=== PATIENT | female | born 1985 | race Caucasian/White ===

== ENCOUNTER 2018-11-12 14:29 | Inpatient (IN) | payer OTHER ==
[2018-11-12] MEDS ORDERED: LR 1,000 ML IV PRN (14:40)
[2018-11-12] MEDS ORDERED: EPSOM SALT 454 GM TP PRN (14:40)
[2018-11-12] MEDS ORDERED: OLIVE OIL 118 ML BTL MISC PRN (14:40)
[2018-11-12] MEDS ORDERED: IBUPROFEN 600 MG TAB PO PRN (14:40)
[2018-11-12] MEDS ORDERED: LIDOCAINE 1% 300 MG/30 ML SDV SC PRN (14:40)
[2018-11-12] MEDS ORDERED: MISOPROSTOL 200 MCG TAB PR PRN (14:40)
[2018-11-12] MEDS ORDERED: OXYTOCIN/RINGERS LACTATE 1,000 ML IV PRN (14:40)
[2018-11-12] MEDS ORDERED: PENICILLIN G POTASSIUM 5,000,000 UNIT in D5W 150 ML IV ONE (14:40)
[2018-11-12] MEDS ORDERED: OLIVE OIL 118 ML BTL ONE (14:41)
[2018-11-12] MEDS ORDERED: LIDOCAINE 1% 300 MG/30 ML SDV ONE (14:41)
[2018-11-12] MEDS ORDERED: AMMONIA AROMATIC 1 EACH AMP IH ONE (14:42)
[2018-11-12] MEDS ORDERED: MISOPROSTOL 200 MCG TAB ONE (14:42)
[2018-11-12] MEDS ORDERED: OXYTOCIN 10 UNIT/ML VIAL ONE (14:42)
[2018-11-12] MEDS ORDERED: TERBUTALINE SULFATE 1 MG/ML VIAL ONE (14:42)
[2018-11-12 15:34] LABS: PLATELET COUNT 154 10^3/uL (150-400)
--- NOTE | 2018-11-12 17:06 | PDGENHP ---
History and Physical History and Physical: Care: [facility] HPI: Massiel Hayes is a [id number] with IUP@ 40-3 weeks that presents to L&D with complaints of contractions since 1200. She denies any LOF, VB. Reports +FM. EDC: 11/09/18 which is based on LMP and c/w Ultrasound at 9weeks. Her is complicated by: h/o PP depression (on meds), mild anemia, +GBS Review of Systems: Constitutional: Denies any fever, chills, or fatigue HEENT: denies any visual changes, difficulty swallowing, hearing loss Cardiovascular: Denies any chest pain, palpitations, leg swelling Respiratory: denies any cough, wheezing, or shortness of breathe GI: Denies any nausea, vomiting, diarrhea, constipation : denies any dysuria, urgency, frequency, vaginal bleeding Musculoskeletal: denies any muscle or bone pain Skin: denies any rashes Neuro: denies any headache, seizures, lightheadedness, dizziness, or loss of consciousness Psychiatric: denies any depression, anxiety, or SI/HI thoughts HISTORY: Previous OB history: 7#4 (Esteban) Past medical history: depression Past surgical history: denies any Social: Denies any alcohol, tobacco, or drug use. - Harjinder, son Esteban; she is a SAHM Family history: Not relevant Medications: PNV, zoloft Allergies (list reaction): NKDA LABS: Rh: AB+ ABS: Neg Rubella: Immune HbsAg: NR HIV: NR VDRL: NR 1hr: 117 GC: Neg Chlamydia: Neg Pap: Normal GBS: + PHYSICAL EXAM: Constitutional: WN, A&Ox3 HEENT: normocephalic atraumatic, supple Skin: Warm, dry, intact Heart: RRR, no murmur Chest: CTA-B Abdomen: Soft, nontender, gravid SVE: 5/50/-2 Extremities: trace edema, negative homans sign Neuro: grossly normal Psych: normal affect assessment: FHT baseline 130+accels, no decels, moderate variability Contractions: toco q 2-5 Assessment: * 33yo with IUP@ 40-3wks * ACtive labor * GBS+ * cat 1 FHR Tracing Plan: * Admit to L&D * IV abx * expectant management PRN * pain relief PRN per pt request * IA per protocol * consider AROM after 2nd dose of PCN Today's visit was approximately 45 min, of which >50% of visit 30 min, was spent face to face with pt on direct counseling/coordination of care.
[2018-11-12] MEDS: PENICILLIN G POTASSIUM 2,500,000 UNIT in D5W 150 ML IV SCH ×2 (19:04→23:51)
[2018-11-12] MEDS ORDERED: SIMETHICONE 80 MG TAB CHEW PO PRN (22:09)
[2018-11-12] MEDS ORDERED: ACETAMINOPHEN 325 MG TAB PO PRN (22:09)
[2018-11-12] MEDS ORDERED: HYDROCORTISONE 0.5% CREAM TP PRN (22:09)
--- NOTE | 2018-11-12 22:09 | OBDEL ---
Info Type: Vaginal Presentation at Delivery: Vertex L&D Analgesia/Anesthesia Type: None GBS+: Yes Intrapartum Medications: Generic Name Dose Route Start Last Admin Trade Name Freq PRN Reason Stop Dose Admin Penicillin G Potassium 2,500, 155 mls @ 155 mls/hr 11/12/18 18:44 11/12/18 19 :04 000 unit/ Dextrose IV 12/12/18 18:43 155 mls Q4H GREY Administration Protocol Discontinued Medications Generic Name Dose Route Start Last Admin Trade Name Freq PRN Reason Stop Dose Admin Penicillin G Potassium 5,000, 160 mls @ 160 mls/hr 11/12/18 14:40 11/12/18 15 :10 000 unit/ Dextrose IV 11/12/18 15:39 160 mls ONCE ONE Administration Protocol Ibuprofen 600 mg 11/12/18 14:40 11/12/18 22:03 Motrin PO 600 mg ONCE PRN Administration post , pain Indications for Delivery: Spontaneous Labor Vaginal Delivery - Delivery Provider Delivery Physician/CNM: Trinidad Nolen - Labor and Delivery Onset of Contractions Date: 11/12/18 Onset of Contractions Time: 12:00 Onset of Contractions Type: Spontaneous Rupture of Membranes Date: 11/12/18 Rupture of Membranes Time: 20:22 Rupture of Membranes Type: Artificial Amniotic Fluid Color: Meconium Stained Dilation Complete Date: 11/12/18 Dilation Complete Time: 21:08 Placenta Delivery Date: 11/12/18 Placenta Delivery Time: 21:49 Total Hours of Labor: 9 Non-surgical Procedures: Amniotomy Vaginal Sponge Count Correct: Yes Vaginal Needle Count Correct: Yes Vaginal Sweep Performed: Yes EBL: 250 Delivery Events: Nuchal Cord [place] Data HAMZAH: 11/09/18 Gestational Age: 40 week(s) and 3 day(s) Mason Delivery Date: 11/12/18 Delivery Time: 21:35 Sex of Infant: Female Score (1 Min): 8 Score (5 Min): 9 ICD10 Worksheet Patient Problems: Problems Problem Status Onset Nuchal cord, single gestation Acute (spontaneous vaginal delivery) Acute - ICD10 Problem Qualifiers (1) (spontaneous vaginal delivery) (2) Nuchal cord, single gestation
[2018-11-13] MEDS: IBUPROFEN 600 MG TAB PO PRN ×3 (03:58→16:47)
[2018-11-13] MEDS: PENICILLIN G POTASSIUM 2,500,000 UNIT in D5W 150 ML IV SCH ×2 (06:28→11:46)
--- NOTE | 2018-11-13 08:52 | OBPP ---
Progress Note Assessment/Plan: Assessment: PP day 1 Plan: D/C home tomorrow 11/13/18 08:49 Subjective/ Course: 11/13/18 08:51 No c/o. Voiding well, pain well controlled. breast feeding well, planning support today. Plan D/C home today. Objective: 11/12/18 15:15 Patient ABO/Rh AB POSITIVE 11/12/18 15:15 Temp Pulse Resp BP Pulse Ox 37.0 C 66 16 95/61 L 94 11/13/18 04:00 11/13/18 04:00 11/13/18 04:00 11/13/18 04:00 11/13/18 04:00 VSS Uterine Position/Fundal Height: At Umbilicus Uterine Tone: Firm
[2018-11-13] MEDS: DOCUSATE SODIUM 100 MG CAP PO PRN (10:43)
[2018-11-14] MEDS: DOCUSATE SODIUM 100 MG CAP PO PRN (00:55)
[2018-11-14] MEDS: IBUPROFEN 600 MG TAB PO PRN ×2 (00:55→10:29)
[2018-11-14 09:15] VITALS: BP 110/67
--- NOTE | 2018-11-14 10:26 | OBPP ---
Progress Note Assessment/Plan: Assessment: Plan: 11/14/18 10:26 PPD #2 stable Epidsodic anxiety Hx of PPD establishing P) Increase dose of zoloft to 100 mg po daily as tolerated Rescue remedy for episodic anxiety episodes; consider other RX as indicated Vitamin D 4000 iu's daily Follow up with therapist as recommended Follow up in clinic at 1 week; 2 weeks; 4 weeks; and 6 weeks. Both she and her partner are aware to call us if she needs to be seen sooner. Discharge home today Subjective/ Course: 11/13/18 08:51 No c/o. Voiding well, pain well controlled. breast feeding well, planning support today. Plan D/C home today. 11/14/18 10:23 RN and patient report episode of anxiety/panic attack yesterday. Pt states she had significant PPD after her first baby and is very anxious she is going to have a repeat of what happened last time. Today she states she is doing better. Denies feeling depressed and has periods of time of anxiety. She did speak with her therapist yesterday and has a plan in place. Currently taking Zoloft 75 mg. Had increased to 100 mg at some point but didn't like the side effects. Is open to trying to increase the dose again this time and is aware she can decrease back to the 75 mg as needed. Bleeding minimal. going well. Pain controlled with medication. Desires discharge home today. Objective: 11/12/18 15:15 Patient ABO/Rh AB POSITIVE 11/12/18 15:15 Temp Pulse Resp BP Pulse Ox 37.2 C 74 16 110/67 94 11/14/18 08:00 11/14/18 08:00 11/14/18 08:00 11/14/18 08:00 11/14/18 08:00 Nipples intact bilaterally; breasts soft Uterine Position/Fundal Height: Umbilicus -1 Uterine Tone: Firm
--- NOTE | 2018-11-14 10:30 | OBGCSDC ---
General Delivery Information - General Info : 2 Para: 2 Abortions: 0 Type: Vaginal L&D Analgesia/Anesthesia Type: None Admission Date: 11/12/18 Labs: Patient ABO/Rh AB POSITIVE 11/12/18 15:15 Hct 35.8 % (38.0-47.0) L 11/12/18 15:15 - Hospital Course : 11/13/18 08:51 No c/o. Voiding well, pain well controlled. breast feeding well, planning support today. Plan D/C home today. 11/14/18 10:23 RN and patient report episode of anxiety/panic attack yesterday. Pt states she had significant PPD after her first baby and is very anxious she is going to have a repeat of what happened last time. Today she states she is doing better. Denies feeling depressed and has periods of time of anxiety. She did speak with her therapist yesterday and has a plan in place. Currently taking Zoloft 75 mg. Had increased to 100 mg at some point but didn't like the side effects. Is open to trying to increase the dose again this time and is aware she can decrease back to the 75 mg as needed. Bleeding minimal. going well. Pain controlled with medication. Desires discharge home today. Vaginal - Delivery Provider Delivery Physician/CNM: Trinidad Nolen - Diagnosis Labor: Spontaneous Rupture of Membranes Type: Artificial Amniotic Fluid Color: Meconium Stained Delivery Events: Nuchal Cord - Procedures Non-surgical Procedures: Amniotomy - Delivery Non-surgical Procedures: Amniotomy EBL: 250 [place] Data HAMZAH: 11/09/18 Gestational Age: 40 week(s) and 5 day(s) Mason Delivery Date: 11/12/18 Delivery Time: 21:35 Sex of Infant: Female [place] Weight (gm): 3260 g Score (1 Min): 8 Score (5 Min): 9 Discharge Information - Discharge Information Condition: Good Instruction/Follow Up: One Week, Two Weeks, Four Weeks, Six Weeks
[2018-11-16] MEDS ORDERED: SERTRALINE HCL 50 MG TAB PO SCH (09:00)
== END 2018-11-14 12:43 | disposition home or self-care (01) | DRG 807 ==
LOC: FLD 14:29 → OBSVTOIN 14:29 → FOB 11-13 00:04
PROVIDERS: ADMIT Advanced Practice Midwife; ATTEND Advanced Practice Midwife
PROC: 10E0XZZ Delivery of Products of Conception, External Approach (ICD-10-PCS; principal; 2018-11-12)
PROC: 10907ZC Drainage of Amniotic Fluid, Therapeutic from Products of Conception, Via Natural or Artificial Opening (ICD-10-PCS; 2018-11-12)
DX: O77.0 Labor and delivery complicated by meconium in amniotic fluid (principal); O69.81X0 Labor and delivery complicated by cord around neck, without compression, not applicable or unspecified; O99.344 Other mental disorders complicating childbirth; F41.0 Panic disorder [episodic paroxysmal anxiety]; O99.824 Streptococcus B carrier state complicating childbirth; Z3A.40 40 weeks gestation of pregnancy; Z37.0 Single live birth
CPT/HCPCS: J2540; J2590; J3105